=== PATIENT | female | born 1975 | race Two or more races ===

== ENCOUNTER 2024-02-20 22:38 | Emergency (ER) | payer MEDICAID, OTHER ==
[~2024-02-20] VITALS: Ht 162.6 cm; Wt 81.6 kg
[2024-02-21] MEDS ORDERED: ACET-2605 PO (00:33)
[2024-02-21] MEDS ORDERED: BENZ-13 PO (00:33)
[2024-02-21] MEDS ORDERED: IBUP-1955 PO (00:33)
[2024-02-21 01:03] VITALS: BP 131/84; TEMP 98; O2SAT 98
== END 2024-02-21 01:03 | disposition home or self-care (01) ==
LOC: ER 22:42
DX: R05.9 Cough, unspecified (principal); Z20.822 Contact with and (suspected) exposure to COVID-19
CPT/HCPCS: 71045-TC; 86403-TC